=== PATIENT | female | born 1965 | race Caucasian/White ===

== ENCOUNTER → 2017-01-19 | Outpatient (CLI) | payer BC ==
--- NOTE | 2017-01-19 15:33 | RADIOLOGY REPORT (SQ) ---
EXAM DESCRIPTION: CHEST PA/LAT COMPLETED DATE/TIME: 01/19/2017 3:08 pm REASON FOR STUDY: M95.4 ACQUIRED DEFORMITY OF CHEST AND RIB COMPARISON: None. NUMBER OF VIEWS: Two view. TECHNIQUE: Frontal and lateral radiographic views of the chest acquired. LIMITATIONS: None. FINDINGS: LUNGS AND PLEURA: No opacities, masses or pneumothorax. No pleural effusion. MEDIASTINUM AND HILAR STRUCTURES: No masses or contour abnormalities. HEART AND VASCULATURE: Heart normal size. No evidence for failure. BONY STRUCTURES: No acute findings. HARDWARE: None. OTHER: No other significant finding. IMPRESSION: NO SIGNIFICANT RADIOGRAPHIC FINDING IN THE CHEST. TECHNICAL DOCUMENTATION: JOB ID: [id number] [employer]- All Rights Reserved
== END ==
LOC: RAD 14:53
PROVIDERS: ATTEND Specialist
DX: M95.4 Acquired deformity of chest and rib (principal)
CPT/HCPCS: 71020

== ENCOUNTER → 2017-12-13 | Outpatient (CLI) | payer BC | LOC: LAB 15:25 | PROVIDERS: ATTEND Otolaryngology | DX: J30.9 Allergic rhinitis, unspecified (principal) | CPT/HCPCS: 36415; 82785; 86003 ==

== ENCOUNTER → 2018-02-03 | Outpatient (CLI) | payer BC | LOC: WI 10:45 | PROVIDERS: ATTEND Physician Assistant | DX: N60.19 Diffuse cystic mastopathy of unspecified breast (principal); Z85.850 Personal history of malignant neoplasm of thyroid | CPT/HCPCS: 76642 ==

== ENCOUNTER → 2018-03-29 | Outpatient (CLI) | payer BC ==
--- NOTE | 2018-03-30 10:03 | RADIOLOGY REPORT (SQ) ---
EXAM DESCRIPTION: CT SOFT TISSUE NECK WITH COMPLETED DATE/TIME: 03/29/2018 7:17 pm REASON FOR STUDY: Z85.850 PERSONAL HISTORY OF MALIGNANT NEOPLASM OF THYROID M54.2 CERVICALGIA Z85.8 50 PERSONAL HISTORY OF MALIGNANT NEOPLASM OF THYROID COMPARISON: CT brain 10/09/2013 TECHNIQUE: Post IV contrasted scanning from skull base through lung apices with review of bone, soft tissue and lung windows. Reconstructed coronal and sagittal MPR images reviewed. All images stored on PACS. All CT scanners at this facility use dose modulation, iterative reconstruction, and/or weight based d osing when appropriate to reduce radiation dose to as low as reasonably achievable (ALARA). [facility]: Dose Right [facility]: CareDose [facility]: Dose Right [facility]: Teradose 4D [facility]: Viraloid CONTRAST TYPE AND DOSE: contrast/concentration: Isovue 350.00 mg/ml; Total Contrast Delivered: 75.0 ml; Total Saline Delivered: 52.0 ml RENAL FUNCTION: None required. The patient is less than 50 years old. RADIATION DOSE: CT Rad equipment meets quality standard of care and radiation dose reduction techniq ues were employed. CTDIvol: 15.6 mGy. DLP: 481 mGy-cm. . LIMITATIONS: None. FINDINGS: SKULL BASE: Intact. MAJOR SALIVARY GLANDS: No solid or cystic masses. No inflammatory changes. LYMPHADENOPATHY: No adenopathy. MUCOSAL MASSES OR ASYMMETRY: No mucosal masses or asymmetry. LARYNX/CORDS: No abnormal findings. VASCULAR STRUCTURES: The major vessels are patent. LUNG APICES: Clear. BONES: Intact. THYROID: Surgical clips post thyroidectomy. PARANASAL SINUSES: Clear. OTHER: No other significant finding. IMPRESSION: Surgical clips post thyroidectomy. Otherwise unremarkable study. TECHNICAL DOCUMENTATION: JOB ID: [id number] Quality ID # [id number]: Final reports with documentation of one or more dose reduction techniques (e.g., Au tomated exposure control, adjustment of the mA and/or kV according to patient size, use of iterative reconstruction technique) 2010 [employer]- All Rights Reserved Reading location - IP/workstation name: [email or web address]
== END ==
LOC: RAD 18:51
PROVIDERS: ATTEND Otolaryngology
DX: M54.2 Cervicalgia (principal); Z85.850 Personal history of malignant neoplasm of thyroid
CPT/HCPCS: 70491; 82565

== ENCOUNTER 2018-05-30 18:32 | Emergency (ER) | payer BC ==
[2018-05-30] MEDS: ASPIRIN 81 MG TABLET, CHEWABLE PO ONE (19:13)
--- NOTE | 2018-05-30 19:13 | ER Document Report ---
ED Medical Screen (RME) - General Chief Complaint: Chest Pain Stated Complaint: CHEST PAIN Time Seen by Provider: 05/30/18 18:59 Primary Care Provider: ASHIHS BOLIVAR PA [Primary Care Provider] - Follow up as needed Mode of Arrival: Ambulatory Information source: Patient Notes: Patient is a 53-year-old female who presents the emergency department chief comp laint of chest pressure and pain across her shoulders and back. Patient reports symptoms started on Wednesday. She reports chest pressure, headache and mild shortness of breath. She denies any nausea or vomiting. She reports past medical history of hypertension, hyperlipidemia, diabetes, thyroidectomy and sleep apnea. Exam: Heart sounds S1-S2 present with no ectopy noted. Lung sounds clear to auscultation bilaterally. I have greeted and performed a rapid initial assessment of this patient. A comprehensive ED assessment and evaluation of the patient, analysis of test results and completion of the medical decision making process will be conducted by additional ED providers. Dictation of this chart was performed using voice recognition software; therefore, there may be some unintended grammatical errors. TRAVEL OUTSIDE OF THE [place] IN LAST 30 DAYS: No - Related Data Allergies/Adverse Reactions: latex [Latex] Allergy (Intermediate, Verified 05/25/18 12:13) Generalized Itching JOSE Inhibitors [Jose Inhibitors] Allergy (Mild, Verified 05/25/18 12:13) GI upset codeine [Codeine] Allergy (Mild, Verified 05/25/18 12:13) GI upset Penicillins Allergy (Mild, Verified 05/25/18 12:13) Anaphylaxis homatropine [From Hycodan] Adverse Reaction (Mild, Verified 05/25/18 12:13) Vomiting hydrocodone bitartrate [From Hycodan] Adverse Reaction (Mild, Verified 05/25/18 12:13) Vomiting Past Medical History - Past Medical History Cardiac Medical History: Reports: Hx Hypertension Denies: Hx Coronary Artery Disease, Hx Heart Attack Pulmonary Medical History: Reports: Hx Asthma, Hx Bronchitis, Hx Pneumonia - 2009 Denies: Hx COPD Neurological Medical History: Denies: Hx Cerebrovascular Accident, Hx Seizures Renal/ Medical History: Reports: Hx Renal Insufficiency Musculoskeltal Medical History: Denies Hx Arthritis Psychiatric Medical History: Reports: Hx Anxiety, Hx Depression Past Surgical History: Reports: Hx Breast Surgery - reduction, Hx Cholecystectomy, Hx Gynecologic Surgery. Denies: Hx Hysterectomy - Immunizations Hx Diphtheria, Pertussis, Tetanus Vaccination: Yes Physical Exam - Vital signs Vitals: Temp Pulse Resp BP Pulse Ox 97.9 F 78 18 156/106 H 97 05/30/18 19:01 05/30/18 19:01 05/30/18 19:01 05/30/18 19:01 05/30/18 19:01 Course - Vital Signs Vital signs: Temp Pulse Resp BP Pulse Ox 97.9 F 78 18 156/106 H 97 05/30/18 19:01 05/30/18 19:01 05/30/18 19:01 05/30/18 19:01 05/30/18 19:01 Doctor's Discharge - Discharge Referrals: ASHISH BOLIVAR PA [Primary Care Provider] - Follow up as needed
--- NOTE | 2018-05-30 19:55 | RADIOLOGY REPORT (SQ) ---
EXAM DESCRIPTION: CHEST 2 VIEWS COMPLETED DATE/TIME: 05/30/2018 7:47 pm REASON FOR STUDY: CHest Pain COMPARISON: None. EXAM PARAMETERS: NUMBER OF VIEWS: two views TECHNIQUE: Digital Frontal and Lateral radiographic views of the chest acquired. RADIATION DOSE: NA LIMITATIONS: none FINDINGS: LUNGS AND PLEURA: No opacities, masses or pneumothorax. No pleural effusion. MEDIASTINUM AND HILAR STRUCTURES: No masses or contour abnormalities. HEART AND VASCULAR STRUCTURES: Heart normal size. No evidence for failure. BONES: No acute findings. HARDWARE: None in the chest. OTHER: No other significant finding. IMPRESSION: NO ACUTE RADIOGRAPHIC FINDING IN THE CHEST. TECHNICAL DOCUMENTATION: JOB ID: [id number] [employer]- All Rights Reserved Reading location - IP/workstation name: [email or web address]
[2018-05-30 20:06] LABS: ABSOLUTE EOSINOPHILS # (AUTO) 0.3 10^3/uL (0.0-0.6); ABSOLUTE LYMPHOCYTES (AUTO) 2.1 10^3/uL (0.5-4.7); ABSOLUTE MONOCYTES (AUTO) 0.4 10^3/uL (0.1-1.4); ABSOLUTE NEUT (AUTO) 3.9 10^3/uL (1.7-8.2); BASOPHILS % (AUTO) 0.7 % (0-2); EOSINOPHILS % (AUTO) 3.8 % (0-6); HEMOGLOBIN 12.7 g/dL (12.0-15.5); LYMPHOCYTES % (AUTO) 31.9 % (13-45); MEAN CORPUSCULAR HEMOGLOBIN 28.6 pg (27.0-33.4); MEAN CORPUSCULAR HGB CONC 34.4 g/dL (32.0-36.0); MEAN CORPUSCULAR VOLUME 83 fl (80-97); MONOCYTES % (AUTO) 5.4 % (3-13); PLATELET COUNT 252 10^3/uL (150-450); RED BLOOD COUNT 4.45 10^6/uL (3.72-5.28); RED CELL DISTRIBUTION WIDTH 14.7 % (11.5-14.0); SEGMENTED NEUTROPHILS % (AUTO) 58.2 % (42-78); TOTAL CELLS COUNTED % (AUTO) 100 %; WHITE BLOOD COUNT 6.7 10^3/uL (4.0-10.5)
[2018-05-30 20:13] LABS: INTERNATIONAL RATION (INR) 0.91; PROTHROMBIN TIME 12.7 SEC (11.4-15.4)
[2018-05-30 20:40] LABS: CREATINE KINASE MB 3.29 ng/mL (<4.55)
[2018-05-30 20:49] LABS: TROPONIN I < 0.012 ng/mL
--- NOTE | 2018-05-30 21:27 | ER Document Report ---
ED General - General Chief Complaint: Chest Pain Stated Complaint: CHEST PAIN Time Seen by Provider: 05/30/18 18:59 Primary Care Provider: ASHISH BOLIVAR PA [Primary Care Provider] - Follow up as needed Mode of Arrival: Ambulatory Information source: Patient Notes: This is a 53-year-old female with a history of thyroid cancer (status post thyroidectomy), hypertension, diabetes,MIKEL who is been under a lot of stress lately and presents to the emergency room with headache and chest pain. Patient states that she has been clenching her teeth a lot because her teeth have become loose and that she is under a lot of financial strain at the moment. She does state that she experienced some headache (4 days ago, 174/98) in association with an elevated blood pressure. She states her blood pressure has been elevated more over the last few days. She states she started having some chest discomfort. TRAVEL OUTSIDE OF THE [place] IN LAST 30 DAYS: No - HPI Onset: Just prior to arrival Onset/Duration: Gradual Quality of pain: Sharp Severity: Mild Pain Level: 1 Associated symptoms: Nausea, Other - Patient's pain is more in the back of the neck. denies: Chest pain, Fever, Shortness of breath Exacerbated by: Denies Relieved by: Denies Similar symptoms previously: Yes Recently seen / treated by doctor: No - Related Data Allergies/Adverse Reactions: latex [Latex] Allergy (Intermediate, Verified 05/25/18 12:13) Generalized Itching JOSE Inhibitors [Jose Inhibitors] Allergy (Mild, Verified 05/25/18 12:13) GI upset codeine [Codeine] Allergy (Mild, Verified 05/25/18 12:13) GI upset Penicillins Allergy (Mild, Verified 05/25/18 12:13) Anaphylaxis homatropine [From Hycodan] Adverse Reaction (Mild, Verified 05/25/18 12:13) Vomiting hydrocodone bitartrate [From Hycodan] Adverse Reaction (Mild, Verified 05/25/18 12:13) Vomiting Past Medical History - General Information source: Patient - Social History Smoking Status: Never Smoker Cigarette use (# per day): No Chew tobacco use (# tins/day): No Frequency of alcohol use: None Drug Abuse: None Lives with: Spouse/Significant other Family History: Malignancy, CVA Patient has suicidal ideation: No Patient has homicidal ideation: No - Past Medical History Cardiac Medical History: Reports: Hx Hypertension Denies: Hx Coronary Artery Disease, Hx Heart Attack Pulmonary Medical History: Reports: Hx Asthma, Hx Bronchitis, Hx Pneumonia - 2010 Denies: Hx COPD Neurological Medical History: Denies: Hx Cerebrovascular Accident, Hx Seizures Renal/ Medical History: Reports: Hx Renal Insufficiency. Denies: Hx Peritoneal Dialysis Musculoskeletal Medical History: Denies Hx Arthritis Psychiatric Medical History: Reports: Hx Anxiety, Hx Depression Past Surgical History: Reports: Hx Breast Surgery - reduction, Hx Cholecystectomy, Hx Gynecologic Surgery. Denies: Hx Hysterectomy - Immunizations Hx Diphtheria, Pertussis, Tetanus Vaccination: Yes Review of Systems - Review of Systems Constitutional: denies: Chills, Fever EENT: No symptoms reported Cardiovascular: denies: Palpitations, Heart racing, Orthopnea, Syncope, Dizziness, Lightheaded Respiratory: No symptoms reported Gastrointestinal: No symptoms reported Genitourinary: No symptoms reported Female Genitourinary: No symptoms reported Musculoskeletal: No symptoms reported Skin: No symptoms reported Hematologic/Lymphatic: No symptoms reported Neurological/Psychological: See HPI Physical Exam - Vital signs Vitals: Temp Pulse Resp BP Pulse Ox 97.9 F 78 18 156/106 H 97 05/30/18 19:01 05/30/18 19:01 05/30/18 19:01 05/30/18 19:01 05/30/18 19:01 Notes: Physical exam: GENERAL: She is alert and oriented x3, blood pressure is currently 166/84, heart rate 72, O2 sat 99% on room air, respiratory rate 19 HEAD: Atraumatic, normocephalic. EYES: Pupils equal round and reactive to light, extraocular movements intact, sclera anicteric, conjunctiva are normal. ENT: TMs normal, nares patent, oropharynx clear without exudates. Moist mucous membranes. NECK: Normal range of motion, supple without obvious mass or JVD. LUNGS: Breath sounds clear to auscultation bilaterally and equal. No wheezes rales or rhonchi. HEART: Regular rate and rhythm without murmurs, rubs or gallops. ABDOMEN: Soft, normoactive bowel sounds. No tenderness to palpation. No guarding, no rebound. No masses appreciated. EXTREMITIES: Normal range of motion, no pitting or edema. No clubbing or cyanosis. NEUROLOGICAL: Cranial nerves II through XII grossly intact. Motor is 5/5, sensory grossly intact, cerebellar (finger to nose) is quite good, visual jackson are fully intact, patient's neck is supple. PSYCH: Normal mood, normal affect. SKIN: Warm, Dry, normal turgor, no rashes or lesions noted. Course - Re-evaluation Re-evalutation: 05/30/18 23:16 I did have a conversation with the patient regarding the head CT and the labs which look good. I think she is under a lot of stress may be exacerbating her blood pressure. Would not exactly sure what regimen she is on some lax to start her on yet a new medicine. I have advised her to follow-up with her doctor. I did offer her observation in the hospital for continued monitoring but she is preferred to go home. - Vital Signs Vital signs: Temp Pulse Resp BP Pulse Ox 97.9 F 78 14 128/77 H 96 05/30/18 19:01 05/30/18 19:01 05/30/18 22:01 05/30/18 22:01 05/30/18 22:01 - Laboratory Result Diagrams: 05/30/18 19:45 05/30/18 21:01 Laboratory results interpreted by me: 05/30/18 05/30/18 19:45 21:01 RDW 14.7 H Creatine Kinase 235 H - Diagnostic Test Radiology reviewed: Image reviewed, Reports reviewed - T of the head shows no acute bleed. Chest x-ray is clear - EKG Interpretation by Me Rhythm: NSR - EKG shows normal sinus rhythm with a ventricular rate of 75, no acute ST-T wave changes Discharge - Discharge Clinical Impression: Headache, Hypertension Condition: Stable Disposition: HOME, SELF-CARE Additional Instructions: As we discussed CT of the head look good. Your labs were also good. Your sugar was actually normal at 100. As we discussed, want you to retake your blood pressure 3 times a day for the next week or 2 and write it down so that that the blood pressure can be reassessed by your primary care doctor. Continue your current medicines at the dose. Return to the ER for any worsening headache or worsening pain or any concerns or getting worse. Referrals: ASHISH BOLIVAR PA [Primary Care Provider] - Follow up as needed
[2018-05-30 21:43] LABS: ALANINE AMINOTRANSFERASE 43 U/L (9-52); ALBUMIN 4.2 g/dL (3.5-5.0); ALKALINE PHOSPHATASE 88 U/L (38-126); ANION GAP 7 (5-19); ASPARTATE AMINO TRANSFERASE 31 U/L (14-36); BILIRUBIN,DIRECT 0.3 mg/dL (0.0-0.4); BILIRUBIN,TOTAL 0.5 mg/dL (0.2-1.3); BLOOD UREA NITROGEN 19 mg/dL (7-20); CALCIUM 10.1 mg/dL (8.4-10.2); CARBON DIOXIDE 29 mmol/L (22-30); CHLORIDE 105 mmol/L (98-107); CREATINE KINASE 235 U/L (30-135); GLUCOSE 100 mg/dL (75-110); SODIUM 140.7 mmol/L (137-145); TOTAL PROTEIN 7.3 g/dL (6.3-8.2)
[2018-05-30] MEDS: METOCLOPRAMIDE HCL INJ/PF 10 MG/2 ML SDV IV ONE (21:47)
[2018-05-30] MEDS: DIPHENHYDRAMINE HCL 50 MG/ML VIAL IV ONE (21:47)
--- NOTE | 2018-05-30 22:46 | RADIOLOGY REPORT (SQ) ---
EXAM DESCRIPTION: CT HEAD WITHOUT IV CONTRAST COMPLETED DATE/TME: 05/30/2018 21:24 CLINICAL HISTORY: 53 years, Female, [place] COMPARISON: None. TECHNIQUE: 191 Images stored on PACS. All CT scanners at this facility use dose modulation, iterative reconstruction, and/or weight based dosing when appropriate to reduce radiation dose to as low as reasonably achievable (ALARA). [facility]: Dose Right [facility]: CareDose [facility]: Dose Right [facility]: Teradose 4D [facility]: [employer] LIMITATIONS: None. FINDINGS: The globes are intact. The paranasal sinuses and mastoid air cells are unremarkable. No displaced or depressed skull fracture. No intra or extra-axial hemorrhage. CT is limited for evaluation of acute infarct. There is no CT evidence for large or territorial acute infarct. No mass or midline shift IMPRESSION: Unremarkable unenhanced CT brain TECHNICAL DOCUMENTATION: Quality ID # [id number]: Final reports with documentation of one or more dose reduction techniques (e.g., Automated exposure control, adjustment of the mA and/or kV according to patient size, use of iterative reconstruction technique) copyright 2011 [employer]- All Rights Reserved
[2018-05-30 23:20] VITALS: BP 146/86
--- NOTE | 2018-05-31 07:53 | EKG REPORT ---
SEVERITY:- NORMAL ECG - SINUS RHYTHM : Confirmed by: Santhosh Us MD 31-May-2018 07:52:43
== END 2018-05-30 23:24 | disposition home or self-care (01) ==
LOC: ER 18:32
DX: R51 Headache (principal); I10 Essential (primary) hypertension; R07.9 Chest pain, unspecified; E11.9 Type 2 diabetes mellitus without complications
CPT/HCPCS: 36415; 70450; 71046; 80053; 82550; 82553; 84484; 85025; 85610; 93005; 93010; 96374; 96375; 99284; J1200; J2765

== ENCOUNTER → 2018-09-07 | Outpatient (CLI) | payer BC ==
[2018-09-07 15:42] LABS: FREE T3 4.16 pg/mL (2.77-5.27); FREE T4 (FREE THYROXINE) 1.55 ng/dL (0.78-2.19)
[2018-09-07 15:56] LABS: THYROID STIMULATING HORMONE 0.32 uIU/mL (0.47-4.68)
== END ==
LOC: LAB 14:39
PROVIDERS: ATTEND Internal Medicine Endocrinology, Diabetes & Metabolism
DX: E89.0 Postprocedural hypothyroidism (principal)
CPT/HCPCS: 36415; 84439; 84443; 84481

== ENCOUNTER → 2018-11-24 | Outpatient (CLI) | payer BC ==
[2018-11-24 16:48] LABS: ANION GAP 7 (5-19); BLOOD UREA NITROGEN 15 mg/dL (7-20); CALCIUM 9.7 mg/dL (8.4-10.2); CARBON DIOXIDE 30 mmol/L (22-30); CHLORIDE 105 mmol/L (98-107); GLUCOSE 129 mg/dL (75-110); POTASSIUM 3.7 mmol/L (3.6-5.0)
[2018-11-24 17:02] LABS: FREE T3 3.56 pg/mL (2.77-5.27); FREE T4 (FREE THYROXINE) 1.27 ng/dL (0.78-2.19)
[2018-11-24 17:16] LABS: THYROID STIMULATING HORMONE 1.16 uIU/mL (0.47-4.68)
== END ==
LOC: LAB 15:56
PROVIDERS: ATTEND Internal Medicine Endocrinology, Diabetes & Metabolism
DX: C73 Malignant neoplasm of thyroid gland (principal); E87.0 Hyperosmolality and hypernatremia
CPT/HCPCS: 36415; 80048; 84439; 84443; 84481

== ENCOUNTER → 2019-05-17 | Outpatient (CLI) | payer BC ==
[2019-05-17 07:57] LABS: ABSOLUTE EOSINOPHILS # (AUTO) 0.3 10^3/uL (0.0-0.6); ABSOLUTE MONOCYTES (AUTO) 0.4 10^3/uL (0.1-1.4); ABSOLUTE NEUT (AUTO) 3.6 10^3/uL (1.7-8.2); BASOPHILS % (AUTO) 0.4 % (0-2); EOSINOPHILS % (AUTO) 4.1 % (0-6); HEMATOCRIT 37.1 % (36.0-47.0); HEMOGLOBIN 12.6 g/dL (12.0-15.5); LYMPHOCYTES % (AUTO) 32.3 % (13-45); MEAN CORPUSCULAR HEMOGLOBIN 27.4 pg (27.0-33.4); MEAN CORPUSCULAR VOLUME 81 fl (80-97); MONOCYTES % (AUTO) 6.2 % (3-13); PLATELET COUNT 207 10^3/uL (150-450); RED BLOOD COUNT 4.61 10^6/uL (3.72-5.28); RED CELL DISTRIBUTION WIDTH 14.5 % (11.5-14.0); TOTAL CELLS COUNTED % (AUTO) 100 %; WHITE BLOOD COUNT 6.3 10^3/uL (4.0-10.5)
[2019-05-17 08:25] LABS: ANION GAP 9 (5-19); BLOOD UREA NITROGEN 21 mg/dL (7-20); CALCIUM 9.2 mg/dL (8.4-10.2); CARBON DIOXIDE 27 mmol/L (22-30); CHLORIDE 105 mmol/L (98-107); GLUCOSE 124 mg/dL (75-110); POTASSIUM 3.6 mmol/L (3.6-5.0)
[2019-05-17 08:43] LABS: FREE T3 3.49 pg/mL (2.77-5.27); FREE T4 (FREE THYROXINE) 1.49 ng/dL (0.78-2.19)
[2019-05-17 09:02] LABS: THYROID STIMULATING HORMONE < 0.01 uIU/mL (0.47-4.68)
== END ==
LOC: OD 07:13
PROVIDERS: ATTEND Internal Medicine Endocrinology, Diabetes & Metabolism
DX: C73 Malignant neoplasm of thyroid gland (principal); E89.0 Postprocedural hypothyroidism
CPT/HCPCS: 36415; 80048; 84439; 84443; 84481; 85025; 86800

== ENCOUNTER → 2019-10-06 | Outpatient (CLI) | payer BC ==
[2019-10-06 18:16] LABS: FREE T3 3.12 pg/mL (2.77-5.27); FREE T4 (FREE THYROXINE) 1.68 ng/dL (0.78-2.19)
[2019-10-06 18:37] LABS: THYROID STIMULATING HORMONE < 0.01 uIU/mL (0.47-4.68)
== END ==
LOC: OD 16:24
PROVIDERS: ATTEND Internal Medicine Endocrinology, Diabetes & Metabolism
DX: E89.0 Postprocedural hypothyroidism (principal); C73 Malignant neoplasm of thyroid gland
CPT/HCPCS: 36415; 84439; 84443; 84481

== ENCOUNTER → 2019-10-13 | Outpatient (CLI) | payer BC ==
[2019-10-13 11:05] VITALS: BP 103/61
--- NOTE | 2019-10-13 11:05 | ER [facility] ASSESSMENT REPORT ---
Intake - In the Last 14 days Have you traveled outside [place]?: No Have you been in close contact with someone CONFIRMED: Yes Worked in Healthcare?: Yes - Symptoms Subjective Fever([place] feverish): Yes Chills: Yes Muscule Aches: Yes Runny Nose: Yes Sore Throat: Yes Cough (New or worsening chronic cough): Yes Shortness of breath: No Nausea or Vomiting: Yes Headache: Yes Abdominal Pain: No Diarrhea(3 or more loose stools in last 24 hours): Yes - Do you have any of the following Chronic lung disease: Asthma or emphysema or COPD: Yes Chronic Lung Disease Comment: asthma Cystic Fibrosis: No Diabetes: Yes High Blood Pressure: Yes Cardiovascular Disease: Yes Chronic Kidney Disease: No Chronic Liver Disease: No Chronic blood disorder like Sickle Cell Disease: No Weak immune system due to disease or medication: Yes Neurologic condition that limits movement: No Developmental delay - Moderate to Severe: No Recent (within past 2 weeks) or current : No Morbid Obesity (>100 pounds over ideal weight): No - Objective Temperature: 96.2 F Pulse Rate: 81 Respiratory Rate: 16 Blood Pressure: 103/61 O2 Sat by Pulse Oximetry: 97 Objective: Given above, testing performed: If Testing Performed: Test Specimen Type Sent to General - General Information source: Patient Notes: Patient presents to the [facility] for screening for the coronavirus. Patient states she has had symptoms for the past 2 days including fever, chills, body aches, runny nose, sore throat, cough, headache and nausea with some diarrhea. Patient does have a history of asthma diabetes cardiovascular disease and previous thyroid cancer. 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 - Related Data Allergies/Adverse Reactions: latex [Latex] Allergy (Intermediate, Verified 05/25/18 12:13) Generalized Itching JOSE Inhibitors [Jose Inhibitors] Allergy (Mild, Verified 05/25/18 12:13) GI upset codeine [Codeine] Allergy (Mild, Verified 05/25/18 12:13) GI upset Penicillins Allergy (Mild, Verified 05/25/18 12:13) Anaphylaxis homatropine [From Hycodan] Adverse Reaction (Mild, Verified 05/25/18 12:13) Vomiting hydrocodone bitartrate [From Hycodan] Adverse Reaction (Mild, Verified 05/25/18 12:13) Vomiting Past Medical History - General Information source: Patient - Social History Smoking Status: Never Smoker Family History: Malignancy, CVA - Past Medical History Cardiac Medical History: Reports: Hx Hypertension Denies: Hx Coronary Artery Disease, Hx Heart Attack Pulmonary Medical History: Reports: Hx Asthma, Hx Bronchitis, Hx Pneumonia - 2009 Denies: Hx COPD Neurological Medical History: Denies: Hx Cerebrovascular Accident, Hx Seizures Endocrine Medical History: Reports: Hx Diabetes Mellitus Type 2 Renal/ Medical History: Reports: Hx Renal Insufficiency. Denies: Hx Peritoneal Dialysis Malignancy Medical History: Reports: Other - Thyroid Musculoskeletal Medical History: Denies Hx Arthritis Psychiatric Medical History: Reports: Hx Anxiety, Hx Depression Past Surgical History: Reports: Hx Breast Surgery - reduction, Hx Cholecystectomy, Hx Gynecologic Surgery. Denies: Hx Hysterectomy Physical Exam - Notes Notes: Full physical exam could not be performed due to covid 19 isolation protocols. Constitutional: Nontoxic appearance, no acute distress Eyes: Nonicteric, extraocular movements intact, sclera clear ENT: Posterior pharynx clear without exudate, no tonsillar hypertrophy Cardiovascular: Heart rate and rhythm regular no JVD Respiratory: Breath sounds clear bilaterally nonlabored breathing, no use of accessory muscles, no tachypnea Gastrointestinal: Abdomen not distended Muculoskeletal: Moves all extremities well Skin: Normal color Neuro: Awake alert oriented, normal speech Psych: Normal mood and affect Diagnostic Results Laboratory Results: The patient was evaluated during the global Covid 19 pandemic, and that diagnosis was suspected/considered upon their initial presentation. Their evaluation, treatment and testing was consistent with current guidelines for patients who present with complaints or symptoms that may be related to Covid 19. Patient presents with upper respiratory symptoms worrisome for possible Covid 19. Patient does not have emergency worrying symptoms such as difficulty breathing, shortness of breath, chest pain, pressure, confusion or cyanosis. Patient appears suitable for discharge as vital signs are stable and patient is nontoxic in appearance. Good return precautions have been discussed with patient, patient verbalized understanding and is agreeable with discharge plan of care at this time. 2 days Patient Education/Counseling Counseling/Education: Patient was provided with discharge information including: As a person under investigation for Covid 19, the [facility], division of public health advises you to adhere to the following guidance until your test results are reported to you. If your test result is positive, you will receive additional information from your provider and your local health department at that time. Remain at home until you are cleared by the health provider or public health authorities. Keep a log of visitors to your home, notify any visitors to your home of your isolation status. If you plan to move to a new address or leave the county, notify the local [facility] department in your County. Call your doctor or seek care if you have an urgent medical need. Before seeking medical care, call ahead to get instructions from the provider before arriving at the medical office clinic or hospital. Notify them that you are being tested for the virus that causes Covid 19 so that arrangements can be made, as necessary, to prevent transmission to others in the healthcare setting. Next, notify the local health department in your county. If a medical emergency arises and you need to call 911, inform the first responders that you are being tested for the virus that causes Covid 19. Next, notify the local health department in your county. [facility] Discharge - Discharge Clinical Impression: Encounter for screening laboratory testing for COVID-19 virus Condition: Stable Disposition: Home; Selfcare
== END ==
LOC: RDC 10:23
PROVIDERS: ATTEND Nurse Practitioner Family
DX: U07.1 COVID-19 (principal)
CPT/HCPCS: 87070; 87880; 99201; 99211; U0003; C9803; 87635

== ENCOUNTER → 2019-11-17 | Outpatient (CLI) | payer BC ==
[2019-11-17 11:27] LABS: ABSOLUTE EOSINOPHILS # (AUTO) 0.3 10^3/uL (0.0-0.6); ABSOLUTE LYMPHOCYTES (AUTO) 1.4 10^3/uL (0.5-4.7); ABSOLUTE MONOCYTES (AUTO) 0.4 10^3/uL (0.1-1.4); ABSOLUTE NEUT (AUTO) 3.9 10^3/uL (1.7-8.2); BASOPHILS % (AUTO) 0.8 % (0-2); EOSINOPHILS % (AUTO) 4.3 % (0-6); HEMATOCRIT 35.6 % (36.0-47.0); HEMOGLOBIN 11.9 g/dL (12.0-15.5); LYMPHOCYTES % (AUTO) 23.7 % (13-45); MEAN CORPUSCULAR HEMOGLOBIN 27.9 pg (27.0-33.4); MEAN CORPUSCULAR HGB CONC 33.5 g/dL (32.0-36.0); MEAN CORPUSCULAR VOLUME 83 fl (80-97); MONOCYTES % (AUTO) 7.3 % (3-13); PLATELET COUNT 198 10^3/uL (150-450); RED BLOOD COUNT 4.27 10^6/uL (3.72-5.28); SEGMENTED NEUTROPHILS % (AUTO) 63.9 % (42-78); TOTAL CELLS COUNTED % (AUTO) 100 %; WHITE BLOOD COUNT 6.1 10^3/uL (4.0-10.5)
[2019-11-17 11:49] LABS: ANION GAP 8 (5-19); BLOOD UREA NITROGEN 19 mg/dL (7-20); CALCIUM 9.2 mg/dL (8.4-10.2); CARBON DIOXIDE 28 mmol/L (22-30); CHLORIDE 105 mmol/L (98-107); GLUCOSE 109 mg/dL (75-110); POTASSIUM 4.2 mmol/L (3.6-5.0)
[2019-11-17 12:05] LABS: FREE T3 2.96 pg/mL (2.77-5.27); FREE T4 (FREE THYROXINE) 1.23 ng/dL (0.78-2.19)
[2019-11-17 12:18] LABS: THYROID STIMULATING HORMONE 0.04 uIU/mL (0.47-4.68)
== END ==
LOC: OD 10:31
PROVIDERS: ATTEND Internal Medicine Endocrinology, Diabetes & Metabolism
DX: C73 Malignant neoplasm of thyroid gland (principal)
CPT/HCPCS: 36415; 80048; 84439; 84443; 84481; 85025

== ENCOUNTER → 2020-03-18 | Outpatient (CLI) | payer BC ==
[~2020-03-18] MED LIST: COVID-19 VACCINE (PFIZER)/PF 30 MCG/0.3 ML VIAL IM ONE; EPINEPHRINE INJ/PF 1 MG/1 ML AMPULE IM PRN
== END ==
LOC: EMPHEALTH 14:25
PROVIDERS: ATTEND Internal Medicine
DX: Z23 Encounter for immunization (principal)
CPT/HCPCS: 91300